=== PATIENT | male | born 1970 ===

== ENCOUNTER 2019-01-09 08:22 | Day surgery (SDC) | payer OTHER | END 2019-01-09 15:03 | disposition home or self-care (01) | LOC: AMB-ENDOS 08:22 | DX: K57.32 Diverticulitis of large intestine without perforation or abscess without bleeding (principal); K64.1 Second degree hemorrhoids ==

== ENCOUNTER 2019-03-20 05:55 | Day surgery (SDC) | payer OTHER | END 2019-03-20 09:20 | disposition home or self-care (01) | LOC: AMB-ENDOS 05:55 | DX: K64.1 Second degree hemorrhoids (principal); K92.1 Melena ==